=== PATIENT | male | born 1960 | race Caucasian/White ===

== ENCOUNTER 2017-08-24 10:36 | Inpatient (IN) | payer OTHER ==
[~2017-08-24] VITALS: Ht 162.6 cm; Wt 79.6 kg
[~2017-08-24 10:36] MED LIST: ADVIL PO; ROPIVACAINE 246.25 MG, EPINEPHRINE HCL 1:1000 0.5 MG, CLONIDINE HCL 0.08 MG, KETOROLAC ... INJ ONE
[2017-08-24] MEDS ORDERED: CEFAZOLIN SOD 2 GM/D5W 50ML 50 ML IV ONE (10:50)
[2017-08-24] MEDS ORDERED: TUMERIC PO (10:59)
[2017-08-24] MEDS ORDERED: VITAMIN D3400 UNIT PO (11:00)
[2017-08-24] MEDS ORDERED: VITAMIN C500 M1 PO (11:01)
[2017-08-24] MEDS ORDERED: DEXAMETHASONE SOD PHOS 10 MG/1 ML VIAL ONE (11:07)
[2017-08-24] MEDS ORDERED: CELECOXIB 200 MG CAP ONE (11:07)
[2017-08-24] MEDS ORDERED: GABAPENTIN 300 MG CAP ONE (11:07)
[2017-08-24] MEDS ORDERED: BACITRACIN 50,000 UNIT VIAL ONE (11:11)
[2017-08-24] MEDS ORDERED: TRANEXAMIC ACID 1,000 MG/10 ML ML ONE (11:11)
[2017-08-24] MEDS ORDERED: MUPIROCIN 2% OINT 22 GM TUBE ONE (11:11)
[2017-08-24] MEDS ORDERED: BUPIVACAINE 7.5MG/ML /DEXTROSE 82.5MG/ML 2 ML AMP INJ ONE (11:24)
[2017-08-24] MEDS ORDERED: PROMETHAZINE HCL (IM) 25 MG/ML VIAL INJ PRN (12:30)
[2017-08-24] MEDS ORDERED: ONDANSETRON HCL INJ 2 MG/ML VIAL IV PRN (12:30)
[2017-08-24] MEDS ORDERED: KETOROLAC TROMETHAMINE 30 MG/ML VIAL IV PRN (12:30)
[2017-08-24] MEDS ORDERED: ZOLPIDEM TARTRATE 5 MG TAB PO PRN (12:30)
[2017-08-24] MEDS ORDERED: DOCUSATE SODIUM 100 MG CAP PO PRN (12:30)
[2017-08-24] MEDS ORDERED: DIPHENHYDRAMINE HCL INJ 50 MG/ML VIAL IM/IV PRN (12:30)
--- NOTE | 2017-08-24 13:16 | Operative Report ---
DATE OF PROCEDURE: August 24, 2017 SHERIFFS: Joaquin Rodriguez PA-C The patient was brought to the operating room for induction of anesthesia. Throughout this case, my PA's assistance was necessary for retraction of soft tissue and positioning of the extremity. This allows for efficient and technically successful execution of the operation and is considered medically necessary. PREOPERATIVE DIAGNOSIS: Osteoarthritis right hip. POSTOPERATIVE DIAGNOSIS: Osteoarthritis right hip. PROCEDURE: Right total hip arthroplasty. INDICATIONS: The patient is a 57-year-old gentleman who has severe arthritis in his right hip. He has failed conservative management and would like to proceed with a right total hip replacement. The risks and benefits of the procedure have been discussed. The hospital stay and recovery have been explained. He states he understands and wishes to proceed. DESCRIPTION OF PROCEDURE: The patient was brought to the operating room and given a spinal anesthetic. He received prophylactic antibiotics and tranexamic acid in the holding area. He was placed under a light general anesthetic and positioned in the left lateral decubitus position. His right hip was prepped and draped in a sterile manner. A preoperative time out was performed. A limited incision posterior approach was made to the right hip. Care was taken to avoid injury to the sciatic nerve. Hemostasis was obtained with electrocautery. A self-retaining Charnley retractor was placed. The posterior capsule and short external rotators were severely contracted. These were released, and the hip was dislocated. An oscillating saw was used to resect the femoral head. Acetabular retractors were placed. Remnants of the labrum and calcified cartilage were excised. The true floor of the acetabulum was established with a 46 mm reamer. The socket was then sequentially reamed up to 55 mm. This accomplished bleeding hemispherical cancellous bone. The hip was thoroughly irrigated with a shower-tip pulsatile lavage. A Leonel [employer] OsseoTi 56 mm outer diameter socket was then seated into place. Fixation was augmented with a single 20 mm screw placed into the ilium. Excellent fixation was obtained. The hip was further irrigated prior to placing a highly crosslinked polyethylene liner with a 36 mm inner diameter. Care was taken to make sure that there was no evidence of soft-tissue interposition. A portion of the premixed pericapsular MIKE injection was placed around the acetabular tissue. The socket was packed with a moistly soaked lap sponge, and attention was directed towards the proximal femur. A box-cutting osteotome and taper pin reamer were used to establish entry to the femoral canal. The Taperloc broaches were then impacted. A size 13 stem had good canal fill and rotational stability. Trial reductions were performed. A standard 36 mm head provided appropriate rastafari of limb length and stability. The trial implants were removed. The hip was further irrigated with a pulsatile lavage. The implants were finally seated, and a final reduction was performed. A standard 36 mm head was chosen. The posterior capsule was quite retracted, but this was repaired as best as possible to create a pantoja over the roof of the femoral head. The tensor fascia and gluteal fascia were closed with interrupted number 2 Ethibond. The skin was closed with subcuticular Vicryl and margot. A sterile bandage was applied. He was returned to the supine position, extubated and transported to the recovery room in stable condition. Blood loss was approximately 100 mL. At the end of the procedure, all needle and sponge counts were correct. Job#: [id number] YAMILETH
--- NOTE | 2017-08-24 13:32 | Diagnostic Imaging Report ---
PROCEDURE:PELVIS AP 1-2 VIEWS TECHNIQUE:AP pelvis INDICATION:Supine AP pelvis COMPARISON:None. FINDINGS: See conclusion. CONCLUSION: 1. Total right hip arthroplasty intact and in anatomic alignment. 2. Expected regional acute postoperative sequela including subcutaneous emphysema, soft tissue swelling and margot. 3. No acute abnormality. Dictated by: Xavier Rand M.D. on 08/24/2017 at 13:33 Electronically approved by: Xavier Rand M.D. on 08/24/2017 at 13:33
[2017-08-24 13:59] VITALS: BP 106/70
[2017-08-24] MEDS ORDERED: CEFAZOLIN SOD 1 GM/NS 50ML 50 ML IV SCH (14:00)
[2017-08-24] MEDS: ACETAMINOPHEN 1000 MG/100 ML IV SCH ×2 (14:24→20:36)
[2017-08-24] MEDS: CELECOXIB 200 MG CAP PO SCH (17:05)
[2017-08-24] MEDS: CEFAZOLIN SOD 1 GM VIAL IV SCH (17:37)
[2017-08-24] MEDS ORDERED: FENTANYL CITRATE/PF 100MCG/2 ML INJ ONE (18:31)
[2017-08-24] MEDS ORDERED: MIDAZOLAM HCL 2 MG/2 ML VIAL ONE (18:31)
[2017-08-24] MEDS ORDERED: PROPOFOL IV EMULSION 10 MG/ML 20 ML VIAL ONE (19:31)
[2017-08-24] MEDS ORDERED: ACETAMINOPHEN 1000 MG/100 ML IV ONE (19:31)
[2017-08-24] MEDS ORDERED: LIDOCAINE HCL 2% LOCAL INJ 5 ML SDV VIAL INJ ONE (19:31)
[2017-08-24 20:00] VITALS: BP 114/69
[2017-08-24 20:36] VITALS: BP 114/69
[2017-08-24] MEDS: ASPIRIN 325 MG TAB PO SCH (20:36)
[2017-08-24] MEDS: SODIUM CHLORIDE 0.9% 1000ML 1,000 ML IV SCH (22:39)
[2017-08-25] VITALS: BP 130/77
[2017-08-25] MEDS: CEFAZOLIN SOD 1 GM VIAL IV SCH ×2 (02:34→09:01)
[2017-08-25] MEDS: ACETAMINOPHEN 1000 MG/100 ML IV SCH (02:34)
[2017-08-25 04:00] VITALS: BP 115/67
[2017-08-25 06:56] LABS: BASOPHILS % 0.1 % (0.0-1.0); HEMATOCRIT 38.8 % (38.2-49.6); HEMOGLOBIN 13.3 g/dL (14.0-18.0); LYMPHOCYTES # (AUTO) 1.6 (1.0-3.2); LYMPHOCYTES % 10.7 % (18.0-39.1); MEAN CORPUSCULAR HEMOGLOBIN 30.3 pg (28-32); MEAN CORPUSCULAR HGB CONC 34.3 g/dL (31-35); MEAN CORPUSCULAR VOLUME 88.4 fL (81-99); MONOCYTES % 6.6 % (4.4-11.3); NEUTROPHILS # (AUTO) 12.4 (2.1-6.9); NEUTROPHILS % 82.1 % (38.7-80.0); PLATELET COUNT 247 x10e3/uL (140-360); RED BLOOD COUNT 4.39 x10e6/uL (4.3-5.7); RED CELL DISTRIBUTION WIDTH 13.1 % (11.7-14.4)
[2017-08-25 07:21] LABS: ANION GAP 14.1 mmol/L (8-16); BLOOD UREA NITROGEN 21 mg/dL (7-26); BUN/CREATININE RATIO 22 (6-25); CALCIUM 9.3 mg/dL (8.4-10.2); CARBON DIOXIDE 24 mmol/L (22-29); CHLORIDE 106 mmol/L (98-107); CREATININE, SERUM 0.94 mg/dL (0.72-1.25); EST GLOMERULAR FILTRATION RATE > 60 ML/MIN (60-); GLUCOSE 126 mg/dL (74-118); POTASSIUM 4.1 mmol/L (3.5-5.1); SODIUM 140 mmol/L (136-145)
[2017-08-25 08:18] VITALS: BP 117/64
[2017-08-25] MEDS ORDERED: ASPIRIN325 MG PO (08:45)
[2017-08-25] MEDS: ASPIRIN 325 MG TAB PO SCH (09:01)
[2017-08-25] MEDS: CELECOXIB 200 MG CAP PO SCH (09:01)
--- NOTE | 2017-08-25 09:51 | Consultation ---
DATE OF CONSULTATION: MEDICINE CONSULTATION REASON FOR CONSULTATION: Medical management. HISTORY OF PRESENT ILLNESS: This is a 57-year-old white male who underwent elective right total hip replacement on August 24, 2017. The patient tolerated the surgery quite well. The patient states the pain is well controlled. The patient states he has a strong family history of osteoarthritis. In fact, his brother underwent bilateral hip replacement. Blood work done today was unremarkable, except white blood cell count was 15,000. The patient's hemoglobin today is 13.3 g/dL. REVIEW OF SYSTEMS GENERAL: The patient states he has gained 10 pounds over the last couple of months. No fever or chills. HEENT: No headaches. No vision changes. CARDIOVASCULAR: No chest pain. No shortness of breath. GI: No nausea, vomiting or constipation. : No dysuria. No hematuria. No constipation. NEUROMUSCULAR: The patient states that he was having right knee pain, but later found out that he had severe right hip degenerative joint disease. The patient states that the pain is well controlled at this time. ALLERGIES: NO KNOWN DRUG ALLERGIES. SURGICAL HISTORY: Right total hip arthroplasty on August 24, 2017. FAMILY HISTORY: Multiple family members with generalized osteoarthritis. In fact, his brother and nephew have undergone knee and hip replacements. SOCIAL HISTORY: The patient man lives with his . 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 The patient denies any tobacco use. He states he drinks alcohol socially. The patient denies any binge alcohol drinking. PAST MEDICAL HISTORY 1. Right hip degenerative joint disease. 2. GERD. HOME MEDICATIONS 1. Omeprazole 20 mg once daily as needed. 2. Tumeric once daily. 3. Advil p.r.n. 4. Vitamin B3 400 units daily. 5. Vitamin C 500 mg daily. PHYSICAL EXAMINATION GENERAL: He is awake, alert and in no distress. Pleasant and at bedside. VITALS: Height is 5 feet 4 inches, weight 165 pounds. Calculated body mass 30. Blood pressure is 117/64, pulse 70, respiratory rate 16, temperature 96.2, oxygen saturation is 95% on room air. INTEGUMENT: Skin is warm and dry. No pallor or conjunctivitis. HEENT: Anicteric sclerae. Moist mucous membranes. CARDIOVASCULAR: Regular rate and rhythm. LUNGS: No rales. No rhonchi or wheezing. ABDOMEN: Benign. EXTREMITIES: No edema or deformity. Negative Blanco's sign in the bilateral calves. NEUROLOGIC: Intact. DIAGNOSIS: Status post right total hip arthroplasty. PLAN 1. Mobilize with therapy. 2. Pain control. 3. Inform the patient he is to avoid all NSAIDs while taking twice a day aspirin therapy for the next 3 weeks. 4. Recommend the patient take daily proton pump inhibitor therapy while on the twice a day aspirin therapy. 5. Inform the patient he can take [id number] acetaminophen for hip pain. 6. The patient will follow up with Dr. Rodriguez in 2 weeks and with his primary care physician also in 2 weeks. I would like to thank Dr. Rodriguez for this generous consult. I spent 35 minutes in the care of the patient. Job#: [id number] GRACIA
[2017-08-25] MEDS ORDERED: NORCO 7.5-3251 EACH PO (10:26)
[2017-08-25 10:29] VITALS: BP 117/64
[2017-08-25] MEDS ORDERED: HYDROCODONE/APAP 5MG-325MG TAB PO PRN (14:00)
[2017-08-25] MEDS ORDERED: ACETAMINOPHEN 650 MG SUPP PR PRN (14:00)
[2017-08-25] MEDS ORDERED: HYDROCODONE/APAP 7.5MG-325MG 1 EA TAB PO PRN (14:00)
[2017-08-25] MEDS ORDERED: ACETAMINOPHEN 1000 MG/100 ML IV PRN (15:00)
== END 2017-08-25 11:22 | disposition home health service (06) | DRG 470 ==
LOC: OR 10:36 → MED/SURG 13:11
PROVIDERS: ADMIT Specialist; ATTEND Specialist
PROC: 0SR90JZ Replacement of Right Hip Joint with Synthetic Substitute, Open Approach (ICD-10-PCS; principal; 2017-08-24 10:00)
DX: M16.11 Unilateral primary osteoarthritis, right hip (principal); K21.9 Gastro-esophageal reflux disease without esophagitis; Z28.21 Immunization not carried out because of patient refusal
CPT/HCPCS: 36415; 72170; 80048; 85025; 86850; 86900; 86920; J0171; J0690; J1100; J1885; J2001; J2250; J2405; J2795

== ENCOUNTER 2022-10-25 11:08 | Emergency (ER) | payer OTHER ==
[~2022-10-25] VITALS: Ht 162.6 cm; Wt 76.2 kg
[~2022-10-25 11:08] MED LIST changes: +ASPIRIN325 MG PO; +NORCO 7.5-3251 EACH PO; -ROPIVACAINE 246.25 MG, EPINEPHRINE HCL 1:1000 0.5 MG, CLONIDINE HCL 0.08 MG, KETOROLAC ... INJ ONE; +TUMERIC PO; +VITAMIN C500 M1 PO; +VITAMIN D3400 UNIT PO
[2022-10-25 11:16] VITALS: O2SAT 100
[2022-10-25 11:45] LABS: BASOPHILS % 0.2 % (0.0-1.0); EOSINOPHILS % 0.1 % (0.0-6.0); HEMATOCRIT 43.6 % (38.2-49.6); HEMOGLOBIN 15.2 g/dL (14.0-18.0); LYMPHOCYTES % 7.2 % (18.0-39.1); MEAN CORPUSCULAR HGB CONC 34.9 g/dL (31-35); MONOCYTES # (AUTO) 0.9 (0.2-0.8); MONOCYTES % 6.8 % (4.4-11.3); NEUTROPHILS # (AUTO) 11.8 (2.1-6.9); NEUTROPHILS % 85.3 % (38.7-80.0); PLATELET COUNT 233 x10e3/uL (140-360); RED CELL DISTRIBUTION WIDTH 13.1 % (11.7-14.4)
[2022-10-25] MEDS ORDERED: ONDANSETRON HCL INJ 2MG/ML 2ML 2 MG/ML VIAL IV ONE (11:54)
[2022-10-25 12:08] LABS: ALBUMIN 4.4 g/dL (3.5-5.0); ALBUMIN/GLOBULIN RATIO 1.3 (0.8-2.0); ANION GAP 17.9 mmol/L (8-16); CALCIUM 9.8 mg/dL (8.4-10.2); CREATININE, SERUM 1.51 mg/dL (0.72-1.25); POTASSIUM 3.9 mmol/L (3.5-5.1)
[2022-10-25 12:41] LABS: CLARITY,URINE TURBID (CLEAR); COLOR,URINE RED (YELLOW); LEUKOCYTE ESTERASE ,URINE LARGE (NEGATIVE); NITRITE,URINE POSITIVE (NEGATIVE); PROTEIN,URINE DIPSTICK 2+ (NEGATIVE)
[2022-10-25 12:42] LABS: KETONES,URINE TRACE (NEGATIVE); URINE UROBILINOGEN 1 mg/dL (0.2 - 1)
[2022-10-25 12:55] LABS: BACTERIA,URINE FEW /HPF; RBC,URINE >50 /HPF (0-5)
[2022-10-25] MEDS ORDERED: LIDOCAINE JELLY 2% 10ML URO-JET ONE (13:14)
[2022-10-25] MEDS ORDERED: LIDOCAINE JELLY 2% 10ML URO-JET TOP ONE (13:15)
[2022-10-25] MEDS ORDERED: SODIUM CHLORIDE 0.9% 1000ML 1,000 ML IV ONE (13:30)
[2022-10-25] MEDS ORDERED: CEFUROXIME500 MG PO (14:31)
[2022-10-25 14:57] VITALS: BP 153/97
== END 2022-10-25 15:30 | disposition home or self-care (01) ==
LOC: ER 11:21
DX: R33.9 Retention of urine, unspecified (principal); N39.0 Urinary tract infection, site not specified; Z96.641 Presence of right artificial hip joint
CPT/HCPCS: 36415; 51703; 80053; 81001; 85025; 99283; J2405; J7030

== ENCOUNTER → 2024-01-11 | Day surgery (SDC) | payer BC ==
[2024-01-07 16:33] LABS: BASOPHILS # (AUTO) 0.1 (0.0-0.1); BASOPHILS % 1.2 % (0.0-1.0); EOSINOPHILS # (AUTO) 0.5 (0.0-0.4); EOSINOPHILS % 7.7 % (0.0-6.0); HEMATOCRIT 42.1 % (38.2-49.6); LYMPHOCYTES # (AUTO) 1.9 (1.0-3.2); LYMPHOCYTES % 28.3 % (18.0-39.1); MEAN CORPUSCULAR HEMOGLOBIN 30.9 pg (28-32); MEAN CORPUSCULAR HGB CONC 33.3 g/dL (31-35); MEAN CORPUSCULAR VOLUME 92.9 fL (81-99); MONOCYTES # (AUTO) 0.6 (0.2-0.8); MONOCYTES % 8.3 % (4.4-11.3); NEUTROPHILS # (AUTO) 3.7 (2.1-6.9); NEUTROPHILS % 54.2 % (38.7-80.0); PLATELET COUNT 224 x10e3/uL (140-360); RED BLOOD COUNT 4.53 x10e6/uL (4.3-5.7); RED CELL DISTRIBUTION WIDTH 13.2 % (11.7-14.4); WHITE BLOOD COUNT 6.75 x10e3/uL (4.8-10.8)
[~2024-01-11] MED LIST changes: +ACETAMINOPHEN 1000 MG/100 ML IV ONE; +ACETAMINOPHEN 1000 MG/100 ML IV PRN; +ASPIRIN 325 MG TAB PO SCH; +CEFUROXIME500 MG PO; +CELECOXIB 100 MG CAP PO SCH; +DIPHENHYDRAMINE HCL INJ 50 MG/ML VIAL IV PRN; +DOCUSATE SODIUM 100 MG CAP PO PRN; +EPHEDRINE SULFATE INJ 50 MG/ML VIAL ONE; +EPINEPHRINE HCL 1:1000 1ML 1 MG/ML AMP ONE; +FENTANYL CITRATE/PF 100MCG/2 ML INJ ONE; +GINKGO BILOBA60 M1 PO; +HYDROCODONE/APAP 5MG-325MG TAB PO PRN; +HYDROCODONE/APAP 7.5MG-325MG 1 EA TAB PO PRN; +IBUPROFEN400 MG PO; +LIDOCAINE HCL 2% LOCAL INJ 5 ML SDV VIAL INJ ONE; +METOCLOPRAMIDE HCL 10 MG/2ML VIAL ONE; +MIDAZOLAM HCL 2 MG/2 ML VIAL ONE; +MULTI-VITAMIN1 EACH PO; +ONDANSETRON HCL INJ 2MG/ML 2ML 2 MG/ML VIAL IV PRN; +ONDANSETRON HCL INJ 2MG/ML 2ML 2 MG/ML VIAL ONE; +PROPOFOL IV EMULSION 10 MG/ML 20 ML VIAL ONE; +ROPIVACAINE 0.5% 5 MG/ML 30 ML SDV ONE; +ROPIVACAINE 246.25 MG, EPINEPHRINE HCL 1:1000 1ML 0.5 MG, CLONIDINE HCL 0.08 MG, KETORO... INJ ONE; +SEVOFLURANE INHAL SOLN 250 ML PEN BTL ONE; +SODIUM CHLORIDE 0.9% 1000ML 1,000 ML IV SCH; +SODIUM CHLORIDE 0.9% 500ML 500 ML ONE; +TRANEXAMIC ACID 1,000 MG/10 ML ML ONE; +TRANEXAMIC ACID 20 ML ONE; +Vancomycin IV 500 MG ONE
[2024-01-11] MEDS: LACTATED RINGER'S 1,000 ML ONE (07:46)
[2024-01-11] MEDS: DEXAMETHASONE SOD PHOS 10 MG/1 ML VIAL ONE (07:47)
[2024-01-11] MEDS: CEFAZOLIN SODIUM 2 GM ONE (07:47)
[2024-01-11] MEDS: CELECOXIB 200 MG CAP ONE (07:47)
[2024-01-11] MEDS: GABAPENTIN 300 MG CAP ONE (07:47)
[2024-01-11 13:05] VITALS: BP 132/86; PULSE 76; RESP 18; O2SAT 98
== END | disposition home health service (06) ==
LOC: OR 06:50
PROVIDERS: ATTEND Specialist
DX: M16.12 Unilateral primary osteoarthritis, left hip (principal); Z96.641 Presence of right artificial hip joint; E66.01 Morbid (severe) obesity due to excess calories; Z68.28 Body mass index [BMI] 28.0-28.9, adult; M06.9 Rheumatoid arthritis, unspecified; Z01.810 Encounter for preprocedural cardiovascular examination; Z01.812 Encounter for preprocedural laboratory examination; Z79.899 Other long term (current) drug therapy
CPT/HCPCS: 27130; 36415; 72170; 85025; 86850; 86900; 93005; 97116; 97161; 97530; C1713 ×2; C1776 ×3; J0131; J0171; J1100; J1885; J2001; J2250; J2405; J2704; J2765; J2795; J3010; J3370; J7040; J7121